=== PATIENT | female | born 1975 | race Caucasian/White ===

== ENCOUNTER 2019-01-30 04:26 | Emergency (ER) | payer SELFPAY ==
[~2019-01-30] VITALS: Ht 160 cm; Wt 129.3 kg
--- OUTSIDE RECORDS SUMMARY | ~2019-01-30 | XMS | Clinical Summary ---
Demographics + + + | Address | [address] | | | [place] [address] | + + + | Home Phone | | + + + | Preferred Language | Unknown | + + + | Marital Status | Single | + + + | Restorationist Affiliation | LDS | + + + | Race | White | + + + | Ethnic Group | Not or | + + + Author + + + | Author | [facility] | + + + | Organization | [facility] | + + + | Address | Unknown | + + + | Phone | Unavailable | + + + Support + + +---------+ + | Name | Relationship | Address | Phone | + + +---------+ + | OLIVIA KEN | [place] | Unknown | | + + +---------+ + Care Team Providers + +------+ + | Care Ampoule Washing Machine Operator Name | Role | Phone | + +------+ + | Tucker Dobson PA-C | PP | Unavailable | + +------+ + Source Comments [facility] is fully live on both [facility] and [facility] Allergies + + + + + + | Active Allergy | Reactions | Severity | Noted | Comments | | | | | Date | | + + + + + + | Hydromorphone | Nausea and Vomiting | Low | 07/01/20 | | | | | | 14 | | + + + + + + | Ketorolac | Anaphylaxis | High | 05/18/20 | | | | | | 16 | | + + + + + + | Penicillins | Rash | Medium | 05/18/20 | | | | | | 16 | | + + + + + + | Sumatriptan | Edema | Medium | 02/13/20 | | | | | | 12 | | + + + + + + Current Medications + + +-------+---------+------+------+-------+ | Prescription | Sig. | Disp. | Refills | Star | End | Statu | | | | | | t | Date | s | | | | | | Date | | | + + +-------+---------+------+------+-------+ | ondansetron ODT 4 | Dissolve on tongue | | | | | Activ | | mg oral | and swallow. | | | | | e | | tablet,disintegratin | | | | | | | | g | | | | | | | + + +-------+---------+------+------+-------+ | oxyCODONE | Take by mouth. | | | 06/0 | | Activ | | (immediate release) | | | | 2/20 | | e | | 20 mg oral tablet | | | | 16 | | | + + +-------+---------+------+------+-------+ | FLUoxetine 40 mg | Take by mouth. | | | | | Activ | | oral capsule | | | | | | e | + + +-------+---------+------+------+-------+ | oxyCODONE intensol | | | | 02/0 | | Activ | | 20 mg/mL oral | | | | 2/20 | | e | | concentrate | | | | 18 | | | + + +-------+---------+------+------+-------+ | OXYCONTIN 10 mg | | | | 01/1 | | Activ | | oral tablet,oral | | | | 6/20 | | e | | only,ext.rel.12 hr | | | | 18 | | | + + +-------+---------+------+------+-------+ Active Problems + + + | Problem | Noted Date | + + + | Acute pain of right lower extremity | 07/01/2017 | + + + | Fibromyalgia | 03/06/2017 | + + + + + | Overview: Overview: | | On chronic narcotic therapy. | + + + + + | Calcium oxalate renal stones | 06/04/2016 | + + + | Arthritis pain, shoulder | 05/18/2016 | + + + | GERD (gastroesophageal reflux disease) | 05/18/2016 | + + + | BMI 60.0-69.9, adult (HCC) | 12/21/2013 | + + + | Cellulitis | 12/21/2013 | + + + + + | Overview: Last Assessment & Plan: Symptoms have improved. I | | was not able to view the wound because of the compression wrap | | which has been placed. The patient was advised to wear different | | clothing to allow better examination with her next followup. | | Transition to oral cephalexin has been well-tolerated. Oral | | antibiotics will be completed in about one more week. We'll | | followup in 3 weeks to review clinical progress. Repeat labs | | including sedimentation rate, CRP and CBC should be collected at | | that time. The patient was advised to call promptly if she has | | any fevers or worsening redness. | + + + + + | Diabetes mellitus (HCC) | 12/21/2013 | + + + | Chronic pain | 04/29/2013 | + + + | Elevated blood pressure | 04/29/2013 | + + + Social History + + + +--------+------+ | Tobacco Use | Types | Packs/Day | Years | Date | | | | | Used | | + + + +--------+------+ | Current Every Day | Cigarettes | 0.25 | 8 | | | Smoker | | | | | + + + +--------+------+ + +---+---+---+ | Smokeless Tobacco: | | | | | Never Used | | | | + +---+---+---+ + + +---------+ + | Alcohol Use | Drinks/We | oz/Week | Comments | | | ek | | | + + +---------+ + | No | | | | + + +---------+ + + + + | Sex Assigned at | Date Recorded | | | | + + + | Not on file | | + + + Last Filed Vital Signs + + + + | Vital Sign | Reading | Time Taken | + + + + | Blood Pressure | 155/87 | 12/26/2017 2:31 PM PST | + + + + | Pulse | 80 | 12/26/2017 2:31 PM PST | + + + + | Temperature | - | - | + + + + | Respiratory Rate | - | - | + + + + | Oxygen Saturation | 96% | 12/26/2017 2:31 PM PST | + + + + | Inhaled Oxygen | - | - | | Concentration | | | + + + + | Weight | 147 kg (324 lb) | 12/26/2017 2:31 PM PST | + + + + | Height | 160 cm (5' 3") | 12/26/2017 2:31 PM PST | + + + + | Body Mass Index | 57.39 | 12/26/2017 2:31 PM PST | + + + + Plan of Treatment + + + + + | Health Maintenance | Due Date | Last Done | Comments | + + + + + | Influenza (Flu) | | 12/22/2013 | | | vaccination (#1) | 8 | | | + + + + + | Pneumococcal (Adult) | Completed | 12/22/2013 | | + + + + + Results Not on filefrom Last 3 Months Insurance + +--------+ +------+ + + | Payer | Benefi | Subscriber | Type | Phone | Address | | | t Plan | ID | | | | | | / | | | | | | | Group | | | | | + +--------+ +------+ + + | PAC[employer]ICSOURCE | PACIFI | xxxxxxxxxxx | PPO | [phone] [address] | | | [facility] | | | [phone] | [place], [place] | | | E | | | | [phone] | + +--------+ +------+ + + + +--------+ +--------+ + + | Guarantor Name | Accoun | Relation to | Date | Phone | Billing Address | | | t Type | Patient | of | | | | | | | | | | + +--------+ +--------+ + + | ANGELITA KEN | Person | Self [birth year] | Home: | [address] | | [place] | al/Fam | | 1975 | [phone] | [place] [address] | | | shoaib | | | [phone] | | + +--------+ +--------+ + +
--- OUTSIDE RECORDS SUMMARY | ~2019-01-30 | XMS | Clinical Summary ---
Demographics + + + | Address | [address] | | | [place] [address] | + + + | Home Phone | | + + + | Preferred Language | Unknown | + + + | Marital Status | Single | + + + | Scientology Affiliation | [phone] | + + + | Race | Unknown | + + + | Ethnic Group | Unknown | + + + Author + + + | Author | [facility] | + + + | Organization | [facility] | + + + | Address | Unknown | + + + | Phone | Unavailable | + + + Support + + +---------+ + | Name | Relationship | Address | Phone | + + +---------+ + | Norm Ken | EARLENE | Unknown | | + + +---------+ + | Son Ken | ECON | Unknown | | + + +---------+ + Care Team Providers + +------+ + | Care Social Service Director Name | Role | Phone | + +------+ + | Jun Collier MD | PP | | + +------+ + Allergies + + + + + + | Active Allergy | Reactions | Severity | Noted | Comments | | | | | Date | | + + + + + + | Hydromorphone | Nausea and Vomiting | Low | 07/01/20 | | | | | | 14 | | + + + + + + | Sumatriptan | Swelling | Medium | 02/13/20 | | | | | | 12 | | + + + + + + | Penicillins | Other (See Comments) | Medium | 02/03/20 | | | | | | 12 | | + + + + + + | Ketorolac | Shortness of Breath | High | 02/03/20 | | | | | | 12 | | + + + + + + Current Medications + + +-------+---------+------+------+-------+ | Prescription | Sig. | Disp. | Refills | Star | End | Statu | | | | | | t | Date | s | | | | | | Date | | | + + +-------+---------+------+------+-------+ | oxycodone 20 MG | Take 20 mg by mouth. | | | 06/0 | | Activ | | immediate release | | | | 2/20 | | e | | tablet | | | | 16 | | | + + +-------+---------+------+------+-------+ | vitamin D2, | Take 50,000 Units by | | | 05/2 | | Activ | | ergocalciferol, | mouth. | | | /20 | | e | | 13114 units capsule | | | | 18 | | | + + +-------+---------+------+------+-------+ | FLUoxetine | Take 40 mg by mouth. | | | | | Activ | | (PROZAC) 40 MG | | | | | | e | | capsule | | | | | | | + + +-------+---------+------+------+-------+ | ondansetron | Take 8 mg by mouth. | | | 05/2 | | Activ | | (ZOFRAN-ODT) 8 MG | | | | /20 | | e | | disintegrating | | | | 18 | | | | tablet | | | | | | | + + +-------+---------+------+------+-------+ | oxyCODONE | Take 15 mg by mouth | | | 07/ | | Activ | | (ROXICODONE) 15 MG | 2 (two) times daily. | | | 3/ | | e | | immediate release | | | | 18 | | | | tablet | | | | | | | + + +-------+---------+------+------+-------+ | albuterol | Inhale 2 puffs into | | | | | Activ | | (PROVENTIL | the lungs every 4 | | | | | e | | HFA;VENTOLIN HFA) | (four) hours as | | | | | | | 108 (90 Base) | needed for Wheezing. | | | | | | | MCG/ACT inhaler | | | | | | | + + +-------+---------+------+------+-------+ | Phentermine HCl 30 | Take by mouth. | | | | | Activ | | MG TBDP | | | | | | e | + + +-------+---------+------+------+-------+ Active Problems + + + | Problem | Noted Date | + + + | Cellulitis of extremity | 07/01/2017 | + + + | Acute pain of right lower extremity | 07/01/2017 | + + + | Folliculitis | 07/01/2017 | + + + | Current smoker | 07/01/2017 | + + + | Hypercoagulable state, secondary (HCC) | 03/06/2017 | + + + + + | Overview: Overview: Patient with history of morbid obesity, | | Body mass index is 66.07 kg/(m^2). Chronic Lower extremity | | cellulitis from chronic lymphedema. Admitted for 10 days to [facility] | | in [place], [place] in lower extremity cellulitis in 2013.Current | | every day smoker for 15 years.Recurrent upper respiratory tract | | infections.Recurrent urinary tract infections and one episode of | | pyelonephritis June 03, 2016.Evaluation for angina January 24, 2017; | | D-dimer 435 ng/ml (LLN 400 mg/ml).CT chest pulmonary embolus | | protocol January 25, 2017; Normal, no evidence of pulmonary | | embolus.CT chest with contrast February 20, 2017; No pathology | | evident.Bilateral lower extremity venous ultrasound January 31 | | 2016; no evidence of DVT.Diagnosed with acute upper respiratory | | tract infection on February 07, 2017.Repeat D-Dimer in the | | asymptomatic state February 16, 2017 536 ng/ml (LLN 400 ng/ml).Last | | Assessment & Plan: Assessment; secondary hypercoagulable state | | secondary to chronic inflammation from obesity, recurrent upper | | respiratory tract infections, chronic lower extremity cellulitis, | | recurrent urinary tract infections, and cigarette smoking.Plan; | | Reassurance.I told Angelita that her chronic elevation of D-Dimer | | is non-specific and does not mean that she is having a blood clot | | currently.However, we did discuss the fact that obesity is a | | modifiable hypercoagulable state. An abundance of clinical and | | epidemiological evidence has established that obesity is a risk | | factor for arterial and venous thrombosis. Obesity is a | | predictor of incident myocardial infarction independent of sex, | | age or ethnicity. Obesity is also a risk factor for ischemic | | stroke, deep venous thrombosis, and pulmonary embolus in both men | | and women. In a meta-analysis of the influence of obesity on | | the risk of a first episode of venous thromboembolic disease, the | | overall odds ratio for first VTE is 2.3 which is similar to | | other inheritable risk factors for thrombophilia such as factor V | | Leiden or acquired risk factors such as exposure to estrogen. | | The risk is even higher for patients who have a BMI greater than | | 40 kg/m . Obesity is also a risk factor for recurrent venous | | thromboembolic disease after the initial event.Obesity is a | | chronic inflammatory condition that is associated with | | dysregulation of metabolic homeostasis resulting in insulin | | resistant, dyslipidemia, altered regulation of blood pressure, | | increased risk of diabetes, cardiovascular disease, chronic | | kidney disease, cancer and thrombosis. It is also likely a | | contributing factor to Angelita's chronically elevated D-Dimer. | | Chronic low-grade inflammation is triggered by inflammatory | | cytokines secreted by the adipocytes leading to the recruitment | | of macrophages to the adipose tissue. Adipose-related resident | | macrophages progressively accumulate as the fat mass increases | | especially in the visceral white adipose tissue. The inflamed | | adipose micro-environment promotes the polarization of | | inflammatory macrophages which further contribute to the | | secretion of cytokines and promotes the systemic inflammatory | | response syndrome. Another major consequence of this chronic | | inflammation is activation of prothrombotic signaling in the | | vascular cells. Finally, inflammation in the obesity associated | | tissue causes impairment of fibrinolysis because of marketed | | increase in expression of plasminogen activator inhibitor.The | | only effective way to interdict the prothrombotic state induced | | by obesity his weight loss. Angelita has been unsuccessful in | | losing weight with diet. Therefore, I recommended bariatric | | surgery.Chronic tobacco use is also a contributing factor is the | | pro inflammatory state.Alfa will follow up with her primary | | care providers to arrange for a referral to a bariatric surgeon | | and for smoking cessation.Follow-up in the [facility] | | [facility] is open. | + + + + + | PCOS (polycystic ovarian syndrome) | 03/06/2017 | + + + | Recurrent UTI (urinary tract infection) | 06/04/2016 | + + + | GERD (gastroesophageal reflux disease) | 05/18/2016 | + + + | Accidental drug overdose | 08/26/2014 | + + + | Non-accidental drug overdose | 08/13/2014 | + + + | Hypoxia | 08/13/2014 | + + + | Intestinal infection due to Clostridium difficile | 07/05/2014 | + + + | PTSD (post-traumatic stress disorder) | 07/02/2014 | + + + | Nightmares associated with chronic post-traumatic stress disorder | 07/02/2014 | + + + | Gastroenteritis, acute | 07/01/2014 | + + + | Nausea with vomiting | 07/01/2014 | + + + | Diarrhea | 07/01/2014 | + + + | Hematemesis | 07/01/2014 | + + + | Diabetes mellitus (HCC) | 07/01/2014 | + + + | Suicide ideation | 07/01/2014 | + + + | Hypoalbuminemia | 12/22/2013 | + + + | Cellulitis left lower extremity. | 12/21/2013 | + + + + + | Last Assessment & Plan: Symptoms have improved. I was not | | able to view the wound because of the compression wrap which has | | been placed. The patient was advised to wear different clothing | | to allow better examination with her next followup. Transition to | | oral cephalexin has been well-tolerated. Oral antibiotics will | | be completed in about one more week. We'll followup in 3 weeks to | | review clinical progress. Repeat labs including sedimentation | | rate, CRP and CBC should be collected at that time. The patient | | was advised to call promptly if she has any fevers or worsening | | redness. | + + + + + | SIRS (systemic inflammatory response syndrome) | 12/21/2013 | + + + | Diabetes mellitus (HCC) | 12/21/2013 | + + + | LEIGH (obstructive sleep apnea) | 12/21/2013 | + + + | BMI 60.0-69.9, adult | 12/21/2013 | + + + | Chronic pain syndrome | 12/21/2013 | + + + | Wound infection | 05/07/2013 | + + + | Lymphedema | 04/29/2013 | + + + + + | Last Assessment & Plan: Continue compression wraps. I have | | given the patient an order for her home wound care nurse to | | continue doing this. | + + +---------+ + | Obesity | 04/29/2013 | +---------+ + + + | Last Assessment & Plan: The patient's lower extremity | | lymphedema and venous stasis would improve with weight loss. | | Weight loss would reduce her risk of recurrent episodes of lower | | extremity cellulitis. The patient was encouraged to continue her | | weight loss efforts. | + + + + + | Osteoarthrosis, unspecified whether generalized or localized, | 04/29/2013 | | unspecified site | | + + + | Type II or unspecified type diabetes mellitus without mention of | 04/29/2013 | | complication, not stated as uncontrolled | | + + + | Ulcer of right leg | 04/29/2013 | + + + | Chronic pain | 04/29/2013 | + + + | Elevated blood pressure | 04/29/2013 | + + + Resolved Problems + + + + | Problem | Noted | Resolved | | | Date | Date | + + + + | Diffuse abdominal pain | 07/01/20 | | | | 14 | 4 | + + + + | Depression | 07/01/20 | | | | 14 | 4 | + + + + Immunizations + + + + | Name | Dates Previously Given | Next Due | + + + + | Influenza Split | 12/22/2013 | | + + + + | Influenza, PF | 12/22/2013 | | | Trivalent | | | + + + + | Pneumococcal | 12/22/2013 | | | Polysaccharide | | | | 23-valent | | | + + + + Family History + + +------+ + | Medical History | Relation | Name | Comments | + + +------+ + | Diabetes type II | Mother | | | + + +------+ + + +------+--------+ + | Relation | Name | Status | Comments | + +------+--------+ + | Mother | | | | + +------+--------+ + Social History + +-------+ +--------+------+ | Tobacco Use | Types | Packs/Day | Years | Date | | | | | Used | | + +-------+ +--------+------+ | Former Smoker | | 0.5 | | | + +-------+ +--------+------+ + +---+---+---+ | Smokeless Tobacco: | | | | | Never Used | | | | + +---+---+---+ + + | Tobacco Cessation: Ready to Quit: Yes; Counseling Given: No | + + + + +---------+ + | Alcohol Use [...] + + + | Blood Pressure | 144/95 | 06/25/2018 10:31 AM PDT | + + + + | Pulse | 94 | 06/25/2018 10:31 AM PDT | + + + + | Temperature | 36.7 C (98 F) | 06/25/2018 10:31 AM PDT | + + + + | Respiratory Rate | 16 | 07/04/2017 8:22 AM PDT | + + + + | Oxygen Saturation | 95% | 07/04/2017 8:22 AM PDT | + + + + | Inhaled Oxygen | - | - | | Concentration | | | + + + + | Weight | 140.2 kg (309 lb) | 06/25/2018 10:31 AM PDT | + + + + | Height | 161.5 cm (5' 3.6") | 07/01/2017 11:25 PM PDT | + + + + | Body Mass Index | 53.71 | 06/25/2018 10:31 AM PDT | + + + + Plan of Treatment + + + + + | Health Maintenance | Due Date | Last Done | Comments | + + + + + | Diabetic Eye Exam | | | | | | 3 | | | + + + + + | Diabetic Foot Exam | | | | | | 3 | | | + + + + + | Microalbumin | | | | | Screening | 3 | | | + + + + + | Vaccine: | | | | | Dtap/Tdap/Td (1 - | 2 | | | | Tdap) | | | | + + + + + | Cervical Cancer | | | | | Screening (Pap) | 3 | | | + + + + + | Hemoglobin A1c | | 07/06/2014, 07/02/2014 | | | | 4 | | | + + + + + | Statin Therapy | | | | | (optimal intensity) | 6 | | | + + + + + | Vaccine: Influenza | | 12/22/2013 | | | (#1) | 8 | | | + + + + + | Vaccine: | Completed | 12/22/2013 | | | Pneumococcal 19-64 | | | | | (PPSV23 only) Medium | | | | | Risk | | | | + + + + + Results Not on filefrom Last 3 Months Insurance + +--------+ +------+-------+---------+ | Payer | Benefi | Subscriber | Type | Phone | Address | | | t Plan | ID | | | | | | / | | | | | | | Group | | | | | + +--------+ +------+-------+---------+ | [employer] - | FIRST | [id number] | | | | | COVENTRY | HEALTH | 00 | | | | | | - | | | | | | | PACIFI | | | | | | | CSOURC | | | | | | | E | | | | | + +--------+ +------+-------+---------+ + +--------+ +--------+ + + | Guarantor Name | Accoun | Relation to | Date | Phone | Billing Address | | | t Type | Patient | of | | | | | | | | | | + +--------+ +--------+ + + | ANGELITA KEN | Person | Self [birth year] | Home: | [address] | | | [place] | | 1975 | [phone] | [place] [address] | | | shoaib | | | [phone] | | + +--------+ +--------+ + +
--- OUTSIDE RECORDS SUMMARY | ~2019-01-30 | XMS | Clinical Summary ---
Demographics + + + | Address | [address] | | | [place] [address] | + + + | Home Phone | | + + + | Preferred Language | Unknown | + + + | Marital Status | Single | + + + | Pentecostal Affiliation | LDS | + + + [...] Team Providers + +------+ + | Care Rail Washer Name | Role | Phone | + +------+ + | Tucker Dobson PA-C | PP | Unavailable | + +------+ + Source Comments ONEAL is fully live on both [facility] and [facility] Allergies + + + + + + [...] | PACIFI | xxxxxxxxxxx | PPO | [phone] [address] | | | [facility] | | | [phone] | [place], [place] | | | E | | | | [phone] | + +--------+ +------+ + + + +--------+ +--------+ + + | Guarantor Name | Accoun | Relation to | Date | Phone | Billing Address | | | t Type | Patient | of | | | | | | | | | | + +--------+ +--------+ + + | ANGELITA KEN | Person | Self [birth year] | Home: | [address] | | [place] | al/Fam | | 1975 | [phone] | [place] [address] | | | shoaib | | | [phone] | | + +--------+ +--------+ + +
--- OUTSIDE RECORDS SUMMARY | ~2019-01-30 | XMS | Clinical Summary ---
Demographics + + + | Address | [address] | | | [place] [address] | + + + | Home Phone | | + + + | Preferred Language | Unknown | + + + | Marital Status | Single | + + + | Shinto Affiliation | 1027 | + + + | Race | Unknown | + + + | Ethnic Group | Unknown | + + + Author + + + | Author | [facility] | | | and [place] | + + + | Organization | [facility] | | | and [place] | + + + | Address | Unknown | + + + | Phone | Unavailable | + + + Support + + +---------+ + | Name | Relationship | Address | Phone | + + +---------+ + | Norm Ken ECON | Unknown | | + + +---------+ + Care Team Providers + +------+ + | Care Military Technician Name | Role | Phone | + [...] | Sumatriptan | Swelling | Medium | 05/18/20 | | | | | | 16 | | + + + + + + Current Medications + + +-------+---------+------+------+-------+ | Prescription | Sig. | Disp. | Refills | Star | End | Statu | | | | | | t | Date | s | | | | | | Date | | | + + +-------+---------+------+------+-------+ | methadone 10 mg | Take 10 mg by mouth | | 0 | 06/0 | | Activ | | tablet | 3 times daily. | | | 2/20 | | e | | | | | | 16 | | | + + +-------+---------+------+------+-------+ | oxyCODONE 20 MG | Take 20 mg by mouth | | 0 | 06/0 | | Activ | | TABS | Twice daily as | | | 2/20 | | e | | | needed (Take up to 5 | | | 16 | | | | | times daily as | | | | | | | | needed.). | | | | | | + + +-------+---------+------+------+-------+ | oxyCODONE 10 MG | Take 10 mg by mouth | | 0 | 06/0 | | Activ | | TABS | 4 times daily. | | | 2/20 | | e | | | | | | 16 | | | + + +-------+---------+------+------+-------+ | ondansetron | Take 4 mg by mouth | | 0 | 06/1 | | Activ | | (ZOFRAN ODT) 4 mg | EVERY 4 TO 6 HOURS | | | 5/20 | | e | | disintegrating | NEEDED. | | | 16 | | | | tablet | | | | | | | + + +-------+---------+------+------+-------+ | FLUoxetine | Take 40 mg by mouth | | | | | Activ | | (PROZAC) 40 MG | Daily. | | | | | e | | capsule | | | | | | | + + +-------+---------+------+------+-------+ | busPIRone (BUSPAR) | Take 5 mg by mouth 2 | | | | | Activ | | 5 mg tablet | times daily. | | | | | e | + + +-------+---------+------+------+-------+ Active Problems + + + | Problem | Noted Date | + + + | Hypercoagulable state, secondary (HCC) | 03/06/2017 | + + + + + | Overview: Patient with history of morbid obesity, Body mass | | index is 66.07 kg/(m^2). Chronic Lower extremity cellulitis from | | chronic lymphedema. Admitted for 10 days to [facility] in [place], [place] | | in lower extremity cellulitis in 2013.Current every day smoker | | for 15 years.Recurrent upper respiratory tract | [...] | evident.Bilateral lower extremity venous ultrasound January 31, | | 2017; no evidence of DVT.Diagnosed with acute upper respiratory | | tract infection on February 07, 2017.Repeat D-Dimer in the | | asymptomatic state February 16, 2017 536 ng/ml (LLN 400 ng/ml). | | Last Assessment & Plan: Assessment; secondary hypercoagulable | | state secondary to chronic inflammation from obesity, recurrent | | upper respiratory tract infections, chronic lower extremity | | cellulitis, recurrent urinary tract infections, and cigarette | | smoking.Plan; Reassurance.I told Angelita that her chronic | | elevation of D-Dimer is non-specific and does not mean that she | | is having a blood clot currently.However, we did discuss the fact | | that obesity is a modifiable hypercoagulable state. An | | abundance of clinical and epidemiological evidence has | | established that obesity is a risk factor for arterial and venous | | thrombosis. Obesity is a predictor of incident myocardial | | infarction independent of sex, age or ethnicity. Obesity is also | | a risk factor for ischemic stroke, deep venous thrombosis, and | | pulmonary embolus in both men and women. In a meta-analysis of | | the influence of obesity on the risk of a first episode of venous | | thromboembolic disease, the overall odds ratio for first VTE | | is 2.3 which is similar to other inheritable risk factors for | | thrombophilia such as factor V Leiden or acquired risk factors | | such as exposure to estrogen. The risk is even higher for | | patients who have a BMI greater than 40 kg/m . Obesity is also | | a risk factor for recurrent venous thromboembolic disease after | | the initial event.Obesity is a chronic inflammatory condition | | that is associated with dysregulation of metabolic homeostasis | | resulting in insulin resistant, dyslipidemia, altered regulation | | of blood pressure, increased risk of diabetes, cardiovascular | | disease, chronic kidney disease, cancer and thrombosis. It is | | also likely a contributing factor to Angelita's chronically | | elevated D-Dimer. Chronic low-grade inflammation is triggered by | | inflammatory cytokines secreted by the adipocytes leading to the | | recruitment of macrophages to the adipose tissue. | | Adipose-related resident macrophages progressively accumulate as | | the fat mass increases especially in the visceral white adipose | | tissue. The inflamed adipose micro-environment promotes the | | polarization of inflammatory macrophages which further contribute | | to the secretion of cytokines and promotes the systemic | | inflammatory response syndrome. Another major consequence of | | this chronic inflammation is activation of prothrombotic | | signaling in the vascular cells. Finally, inflammation in the | | obesity associated tissue causes impairment of fibrinolysis | | because of marketed increase in expression of plasminogen | | activator inhibitor.The only effective way to interdict the | | prothrombotic state induced by obesity his weight loss. Angelita | | has been unsuccessful in losing weight with diet. Therefore, I | | recommended bariatric surgery.Chronic tobacco use is also a | | contributing factor is the pro inflammatory state.Alfa will | | follow up with her primary care providers to arrange for a | | referral to a bariatric surgeon and for smoking | | cessation.Follow-up in the [facility] | | Center is open. | + + + + + | Fibromyalgia | 03/06/2017 | + + + + + | Overview: On chronic narcotic therapy. | + + + + + | PCOS (polycystic ovarian syndrome) | 03/06/2017 | + + + | Pyelonephritis, acute | 06/06/2016 | + + + | Recurrent UTI (urinary tract infection) | 06/04/2016 | + + + | Calcium oxalate renal stones | 06/04/2016 | + + + | Ureteral stone with hydronephrosis | 05/18/2016 | + + + | UTI (urinary tract infection) | 05/18/2016 | + + + | Fever and chills | 05/18/2016 | + + + | Smoker - Daily | 05/18/2016 | + + + | GERD (gastroesophageal reflux disease) | 05/18/2016 | + + + | Class III+, BMI 60.0-69.9 | 05/18/2016 | + + + | Arthritis pain, shoulders | 05/18/2016 | + + + | Body mass index (BMI) of 60.0-69.9 in adult ([facility]) | 12/21/2013 | + + + | Obstructive sleep apnea syndrome - uses CPAP | 12/21/2013 | + + + | Chronic pain - Managed with Methadone and other Narcotics (Pain | 04/29/2013 | | Pump no longer functional) | | + + + | Lymphedema | 04/29/2013 | + + + + + | Overview: Last Assessment & Plan: Continue compression wraps. | | I have given the patient an order for her home wound care nurse | | to continue doing this. | + + Family History + + +------+ + | Medical History | Relation | Name | Comments | + + +------+ + | Depression | Daughter | | | + + +------+ + | Depression | Father | | | + + +------+ + | Diabetes | Father | | | + + +------+ + | Hypertension | Father | | | + + +------+ + | Hypertension | Maternal | | | | | Grandfath | | | | | er | | | + + +------+ + | Cancer | Maternal | | skin | | | Grandmoth | | | | | er | | | + + +------+ + | Diabetes | Maternal | | | | | Grandmoth | | | | | er | | | + + +------+ + | Cancer | Mother | | breast cancer, skin cancer | + + +------+ + | Depression | Mother | | | + + +------+ + | Hypertension | Mother | | | + + +------+ + | Diabetes | Paternal | | | | | Grandfath | | | | | er | | | + + +------+ + | Cancer | Paternal | | uterin | | | Grandmoth | | | | | er | | | + + +------+ + | Diabetes | Paternal | | | | | Grandmoth | | | | | er | | | + + +------+ + | Depression | Son | | | + + +------+ + + +------+--------+ + | Relation | Name | Status | Comments | + +------+--------+ + | Daughter | | | | + +------+--------+ + | Father | | | | + +------+--------+ + | Maternal Grandfather | | | | + +------+--------+ + | Maternal Grandmother | | | | + +------+--------+ + | Mother | | | | + +------+--------+ + | Paternal Grandfather | | | | + +------+--------+ + | Paternal Grandmother | | | | + +------+--------+ + | Son | | | | + +------+--------+ + Social History + +-------+ +--------+------+ | Tobacco Use | Types | Packs/Day | Years | Date | | | | | Used | | + +-------+ +--------+------+ | Current Every Day | | 0.5 | 15 | | | Smoker | | | | | + +-------+ +--------+------+ + +---+---+---+ | Smokeless Tobacco: | | | | | Never Used | | | | + +---+---+---+ + + | Tobacco Cessation: Ready to Quit: Yes | + + + + +---------+ + [...] + + + | Blood Pressure | 143/79 | 03/06/20171449 PDT | + + + + | Pulse | 80 | 03/06/20171449 PDT | + + + + | Temperature | 36.9 C (98.5 F) | 03/06/20171449 PDT | + + + + | Respiratory Rate | 16 | 03/06/20171449 PDT | + + + + | Oxygen Saturation | 95% | 03/06/20171449 PDT | + + + + | Inhaled Oxygen | - | - | | Concentration | | | + + + + | Weight | 169.1 kg (372 lb | 03/06/20171449 PDT | | | 14.4 oz) | | + + + + | Height | 160 cm (5' 2.99") | 06/03/2016 1758 PDT | + + + + | Body Mass Index | 66.07 | 03/06/2017 1450 PDT | + + + + Plan of Treatment + + + + + | Health Maintenance | Due Date | Last Done | Comments | + + + + + | Vaccine: | | | | | Dtap/Tdap/Td (1 - | 2 | | | | Tdap) | | | | + + + + + | Cervical Cancer | | 09/29/2002 | | | Screening (Pap) | 7 | | | + + + + + | Vaccine: Influenza | | 12/22/2013 | | | (#1) | 8 | | | + + + + + | Vaccine: | Completed | 12/22/2013 | | | Pneumococcal 19-64 | | | | | (PPSV23 only) Medium | | | | | Risk | | | | + + + + + Implants + +-------+--------+ +--------+--------+--------+ | Implanted | Type | Area | Manufacture | Device | Expira | Model | | | | | r | | tion | / | | | | | | Identi | Date | Serial | | | | | | fier | | / Lot | + +-------+--------+ +--------+--------+--------+ | Stent Uro Unvrs Sft 6fr 28cm | Stent | Left: | MELCHOR ROCHE | | 01/18/ | [id number] | | - [id number]: Qty: 1 | | Ureter | INCORPORATE | | 2018 | / | | on 06/03/2016 by Nate Moses | | | D | | | /[id number] | | GMD | | | | | | 96 | + +-------+--------+ +--------+--------+--------+ Results Not on filefrom Last 3 Months Insurance +-------+--------+ +------+-------+---------+ | Payer | Benefi | Subscriber | Type | Phone | Address | | | t Plan | ID | | | | | | / | | | | | | | Group | | | | | +-------+--------+ +------+-------+---------+ | BCBS | BCBS | [id number] | PPO | | | | | OOS | 5 | | | | | | PPO | | | | | +-------+--------+ +------+-------+---------+ + +--------+ +--------+ + + | Guarantor Name | Accoun | Relation to | Date | Phone | Billing Address | | | t Type | Patient | of | | | | | | | | | | + +--------+ +--------+ + + | ANGELITA KEN | Person | Self | [birth year] | Home: | [address] | | [place] | [place] | | 1975 | [phone] | [place] | | | shoaib | | | [phone] | [phone] | + +--------+ +--------+ + +
--- OUTSIDE RECORDS SUMMARY | ~2019-01-30 | XMS | Clinical Summary ---
Demographics + + + | Address | [address] | | | [place] [address] | + + + | Home Phone | | + + + | Preferred Language | Unknown | + + + | Marital Status | Single | + + + | Congregational Affiliation | 1027 | + + + | Race | Unknown | + + + | Ethnic Group | Unknown | + + + Author + + + | Author | [facility] | + + + | Organization | [facility] | + + + | Address [...] Team Providers + +------+ + | Care Telecom Field Technician Name | Role | Phone | [...] | /20 | | e | | 14071 units capsule | | | | 18 [...] chronic lymphedema. Admitted for 10 days to [facility] | | in [place], [place] in lower extremity cellulitis in 2013.Current [...] | and for smoking cessation.Follow-up in the [facility] | | [facility] is open. | + + + + [...] | [facility] | [id number] | | | | | COVENTRY | [...] | Self | [birth year] | Home: | [address] | | | [place] | | 1975 | [phone] | [place] [address] | | | shoaib | | | [phone] | | + +--------+ +--------+ + +
--- OUTSIDE RECORDS SUMMARY | ~2019-01-30 | XMS | Clinical Summary ---
Demographics + + + | Address | [address] | | | [place] [address] | + + + | Home Phone | | + + + | Preferred Language | Unknown | + + + | Marital Status | Single | + + + | Spiritism Affiliation | 1027 | + + + | Race | Unknown | + + + | Ethnic Group | Unknown | + + + Author + + + | Author | [facility] | | | and [place] | + + + | Organization | [facility] | | | [...] Team Providers + +------+ + | Care Licensed Occupational Therapist Name | Role | Phone | + [...] chronic lymphedema. Admitted for 10 days to [facility] in [place], [place] | | in lower extremity cellulitis [...] for smoking | | cessation.Follow-up in the [facility] | | Center is open. [...] mass index (BMI) of 60.0-69.9 in adult ([facility]) | 12/21/2013 | + + + | [...] | MELCHOR ROCHE | | 01/18/ | [id number] | | - [id number]: Qty: 1 | | Ureter | INCORPORATE | | 2018 | / | | on 06/03/2016 by Nate Moses | | | D | | | /[id number] | | GMD | | | | [...] +-------+--------+ +------+-------+---------+ | BCBS | BCBS | [id number] | PPO | | | | | [...] | [place] | | | [phone] | [phone] | + +--------+ +--------+ + +
[~2019-01-30 04:26] MED LIST: ALPRAZOLAM0.5 MG PO; CARAFATE1 GM/10 ML PO; CIPROFLOXACIN250 MG PO; FLOMAX0.4 MG PO; HYDROCODON-ACE1 EA11 PO; METHADONE HCL10 MG PO; MORPHINE; OXYCODONE HCL10 MG PO; OXYCONTIN10 MG PO; PROMETHAZINE HC25 M1 PO; PROTONIX40 MG PO; PROVERA10 MG PO; [UNRECOGNIZED DRUG - OTHER]
--- OUTSIDE RECORDS SUMMARY | 2019-01-30 04:28 | XMS ---
PreManage Notification: YANELIS KEN Security Technical Aid Events No recent Security Events currently on file CRITERIA MET - [facility] CARE PROVIDERS MAISHA MATHUR [facility] Current PHONE: Unknown MAISHA MATHUR [facility] Current PHONE: Unknown GEORGES AMBRIZ [facility] PHONE: Unknown Maisha Mathur DO [facility] Current PHONE: Unknown Rashmi has no Care Guidelines for this patient. Rosanne VISIT COUNT (12 MO.) [address] [place] [address] HALLIE [place] TOTAL 2 NOTE: Visits indicate total known visits. ED/UCC VISIT TRACKING (12 MO.) 01/30/2019 04:26 [place] TYPE: Emergency COMPLAINT: - PAIN NON INJURY 11/17/2018 21:05 [facility] [place] TYPE: Emergency DIAGNOSES: - Contusion of right foot, initial encounter - Poss broken foot and toe INPATIENT VISIT TRACKING (12 MO.) No inpatient visits to display in this time frame [id number]
[2019-01-30] MEDS ORDERED: OXYCODONE HCL E20 MG PO (05:04)
[2019-01-30] MEDS ORDERED: OXYCODONE HCL E15 MG PO (05:12)
[2019-01-30] MEDS ORDERED: TYLENOL EXTRA500 MG PO (05:14)
[2019-01-30] MEDS ORDERED: IBUPROFEN IB200 MG PO (05:14)
[2019-01-30] MEDS ORDERED: HYDROXYZINE HCL25 MG PO (05:15)
[2019-01-30] MEDS ORDERED: LOPERAMIDE2 MG PO (05:17)
[2019-01-30] MEDS ORDERED: MULTIVITAMINS1 EAC7 PO (05:17)
[2019-01-30] MEDS ORDERED: CATAPRES0.1 MG PO (05:19)
== END 2019-01-30 05:26 | disposition home or self-care (01) ==
LOC: ED 04:26
DX: G89.29 Other chronic pain (principal); F11.23 Opioid dependence with withdrawal; M54.5 Low back pain; F41.9 Anxiety disorder, unspecified; E11.9 Type 2 diabetes mellitus without complications; I10 Essential (primary) hypertension; G47.30 Sleep apnea, unspecified; Z87.891 Personal history of nicotine dependence; Z90.49 Acquired absence of other specified parts of digestive tract; Z88.0 Allergy status to penicillin; Z88.6 Allergy status to analgesic agent; Z88.8 Allergy status to other drugs, medicaments and biological substances; Z79.899 Other long term (current) drug therapy
CPT/HCPCS: 99283

== ENCOUNTER 2019-01-30 20:28 | Emergency (ER) | payer SELFPAY ==
[~2019-01-30] VITALS: Ht 160 cm; Wt 129.3 kg
--- OUTSIDE RECORDS SUMMARY | ~2019-01-30 | XMS | Clinical Summary ---
Demographics + + + | Address | [address] | | | [place] [address] | + + + | Home Phone | | + + + | Preferred Language | Unknown | + + + | Marital Status | Single | + + + | Gnosticism Affiliation | LDS | + + + [...] Team Providers + +------+ + | Care Embossing Toolsetter Name | Role | Phone | + +------+ + | Tucker Dobson PA-C | PP | Unavailable | + +------+ + Source Comments ONEAL is fully live on both [facility] and [facility] Allergies + + + + [...] | PACIFI | xxxxxxxxxxx | PPO | [phone] [address] | | | [facility] | | | [phone] | [place], [place] | | | E | | | | [phone] | + +--------+ +------+ + + + +--------+ +--------+ + + | Guarantor Name | Accoun | Relation to | Date | Phone | Billing Address | | | t Type | Patient | of | | | | | | | | | | + +--------+ +--------+ + + | ANGELITA KEN | Person | Self [birth year] | Home: | [address] | | [place] | al/Fam | | 1975 | [phone] | [place] [address] | | | [place] | | | [phone] | | + +--------+ +--------+ + +
--- OUTSIDE RECORDS SUMMARY | ~2019-01-30 | XMS | Clinical Summary ---
Demographics + + + | Address | [address] | | | [place] [address] | + + + | Home Phone | | + + + | Preferred Language | Unknown | + + + | Marital Status | Single | + + + | Mosque Affiliation | 1027 | + + + | Race | Unknown | + + + | Ethnic Group | Unknown | + + + Author + + + | Author | [facility] | + + + | Organization | [facility] | + + + | Address [...] Team Providers + +------+ + | Care Emergency Vehicle Dispatcher Name | Role | Phone | + [...] | /20 | | e | | 70114 units capsule | | | | 18 [...] chronic lymphedema. Admitted for 10 days to [facility] | | in [place], [place] in lower extremity cellulitis in 2013.Current [...] | and for smoking cessation.Follow-up in the [facility] | | [facility] is open. | + + + + [...] | [facility] [id number] | | | | | COVENTRY | [...] | Self | [birth year] | Home: | [address] | | | [place] | | 1975 | [phone] | [place] [address] | | | shoaib | | | [phone] | | + +--------+ +--------+ + +
--- OUTSIDE RECORDS SUMMARY | ~2019-01-30 | XMS | Clinical Summary ---
Demographics + + + | Address | [address] | | | [place] [address] | + + + | Home Phone | | + + + | Preferred Language | Unknown | + + + | Marital Status | Single | + + + | Protestant Affiliation | 1027 | + + + | Race | Unknown | + + + | Ethnic Group | Unknown | + + + Author + + + | Author | [facility] | | | and [place] | + + + | Organization | [facility] | | | and [...] Team Providers + +------+ + | Care Group Work Program Director Name | Role | Phone | [...] chronic lymphedema. Admitted for 10 days to [facility] in [place], [place] | | in lower extremity cellulitis [...] for smoking | | cessation.Follow-up in the [facility] | | Center is open. | [...] mass index (BMI) of 60.0-69.9 in adult ([facility]) | 12/21/2013 | + + + [...] | MELCHOR ROCHE | | 01/18/ | [id number] | | - [id number]: Qty: 1 | | Ureter | INCORPORATE | | 2018 | / | | on 06/03/2016 by Nate Moses | | | D | | | /[id number] | | GMD | | | | [...] +-------+--------+ +------+-------+---------+ | BCBS | BCBS | [id number] | PPO | | | | | [...] | [place] | | | [phone] | [phone] | + +--------+ +--------+ + +
--- OUTSIDE RECORDS SUMMARY | ~2019-01-30 | XMS | Clinical Summary ---
Demographics + + + | Address | [address] | | | [place] [address] | + + + | Home Phone | | + + + | Preferred Language | Unknown | + + + | Marital Status | Single | + + + | Hindu Affiliation | LDS | + + + [...] Team Providers + +------+ + | Care Security Systems Installer Name | Role | Phone | + +------+ + | Tucker Dobson PA-C | PP | Unavailable | + +------+ + Source Comments ONEAL is fully live on both [facility] Ambulatory and [facility] InPatient.[facility] Allergies + + + + + + [...] | PACIFI | [phone] | PPO | [phone] | [address] | | | [facility] | | | [phone] | [place], [place] | | | E | | | | [phone] | + +--------+ +------+ + + + +--------+ +--------+ + + | Guarantor Name | Accoun | Relation to | Date | Phone | Billing Address | | | t Type | Patient | of | | | | | | | | | | + +--------+ +--------+ + + | ANGELITA KEN | Person | Self | [birth year] | Home: | [address] | | [place] | al/Fam | | 1975 | [phone] | [place] [address] | | | shoaib | | | [phone] | | + +--------+ +--------+ + +
--- OUTSIDE RECORDS SUMMARY | ~2019-01-30 | XMS | Clinical Summary ---
Demographics + + + | Address | [address] | | | [place] [address] | + + + | Home Phone | | + + + | Preferred Language | Unknown | + + + | Marital Status | Single | + + + | Denominational Affiliation | 1027 | + + + | Race | Unknown | + + + | Ethnic Group | Unknown | + + + Author + + + | Author | [facility] | | | and [place] | + + + | Organization | [facility] | | | and [...] Team Providers + +------+ + | Care Tube Winder Hand Name | Role | Phone | + [...] chronic lymphedema. Admitted for 10 days to [facility] in [place], [place] | | in lower extremity cellulitis [...] for smoking | | cessation.Follow-up in the [facility] | | Center is open. | [...] mass index (BMI) of 60.0-69.9 in adult ([facility]) | 12/21/2013 | + + + | [...] | MELCHOR ROCHE | | 01/18/ | [id number] | | - [id number]: Qty: 1 | | Ureter | INCORPORATE | | 2018 | / | | on 06/03/2016 by Nate Moses | | | D | | | /[id number] | | GMD | | | | [...] +-------+--------+ +------+-------+---------+ | BCBS | BCBS | [id number] | PPO | | | | | [...] | [place] | | | [phone] | [phone] | + +--------+ +--------+ + +
--- OUTSIDE RECORDS SUMMARY | ~2019-01-30 | XMS | Clinical Summary ---
Demographics + + + | Address | [address] | | | [place] [address] | + + + | Home Phone | | + + + | Preferred Language | Unknown | + + + | Marital Status | Single | + + + | Tenriism Affiliation | 1027 | + + + | Race | Unknown | + + + | Ethnic Group | Unknown | + + + Author + + + | Author | [facility] | + + + | Organization | [facility] | + + + | Address [...] Team Providers + +------+ + | Care Dietetic Technician Name | Role | Phone | [...] | /20 | | e | | 16869 units capsule | | | | 18 [...] chronic lymphedema. Admitted for 10 days to [facility] | | in [place], [place] in lower extremity cellulitis in 2013.Current [...] | and for smoking cessation.Follow-up in the [facility] | | [facility] is open. | + + + [...] | [facility] | [id number] | | | | | COVENTRY | [...] | Self | [birth year] | Home: | [address] | | | [place] | | 1975 | [phone] | [place] [address] | | | shoaib | | | [phone] | | + +--------+ +--------+ + +
[~2019-01-30 20:28] MED LIST changes: +CATAPRES0.1 MG PO; +HYDROXYZINE HCL25 MG PO; +IBUPROFEN IB200 MG PO; +LOPERAMIDE2 MG PO; +MULTIVITAMINS1 EAC7 PO; +OXYCODONE HCL E15 MG PO; +OXYCODONE HCL E20 MG PO; +TYLENOL EXTRA500 MG PO
--- OUTSIDE RECORDS SUMMARY | 2019-01-30 20:30 | XMS ---
PreManage Notification: YANELIS KEN Security Supervisor Heat Treating Events No recent Security Events currently on file CRITERIA MET - PDM - [facility] - 2 Visits in 30 Days CARE PROVIDERS JACOB MARTINEZ Physician Section Supervisor 01/30/2019-Current PHONE: Unknown MAISHA MATHUR [facility] Current PHONE: Unknown MAISHA MATHUR [facility] Current PHONE: Unknown GEORGES AMBRIZ Primary Care [facility] PHONE: Unknown Maisha Mathur DO Primary Care Current PHONE: Unknown Rashmi has no Care Guidelines for this patient. Rosanne VISIT COUNT (12 MO.) [address] Ramin [place] TOTAL 3 NOTE: Visits indicate total known visits. ED/UCC VISIT TRACKING (12 MO.) 01/30/2019 20:28 [facility] [place] TYPE: Emergency COMPLAINT: - CHEST PAIN 01/30/2019 04:26 [facility] [place] TYPE: Emergency COMPLAINT: - PAIN NON INJURY 11/17/2018 21:05 [facility] [place] TYPE: Emergency DIAGNOSES: - Contusion of right foot, initial encounter - Poss broken foot and toe INPATIENT VISIT TRACKING (12 MO.) No inpatient visits to display in this time frame [id number]
--- NOTE | 2019-01-31 07:52 | EKG ---
[facility] [address] [place], [place] [address] Signed Normal sinus rhythm Normal ECG No previous ECGs available Confirmed by NESTOR BRADFORD MD ([id number]) on 01/31/2019 7:52:06 AM Electronically Signed By: NESTOR BRADFORD MD 01/31/19 0752 PATIENT NAME: YANELIS KEN Electrocardiogram DATE OF : [birth year] PHYSICIAN: NESTOR BRADFORD MD REPORT #: [id number] REPORT IS CONFIDENTIAL AND NOT TO BE RELEASED WITHOUT AUTHORIZATION
== END 2019-01-30 22:50 | disposition home or self-care (01) ==
LOC: ED 20:28
DX: R07.9 Chest pain, unspecified (principal); F41.9 Anxiety disorder, unspecified; E11.9 Type 2 diabetes mellitus without complications; I10 Essential (primary) hypertension; G47.30 Sleep apnea, unspecified; Z87.891 Personal history of nicotine dependence; Z90.49 Acquired absence of other specified parts of digestive tract; Z88.0 Allergy status to penicillin; Z88.6 Allergy status to analgesic agent; Z88.8 Allergy status to other drugs, medicaments and biological substances; Z79.899 Other long term (current) drug therapy
CPT/HCPCS: 71045; 80053; 84484; 85025; 93005; 93010; 99285-25

== ENCOUNTER 2021-12-28 00:23 | Emergency (ER) | payer MEDICARE, OTHER ==
[~2021-12-28] VITALS: Ht 160 cm; Wt 124.7 kg
[~2021-12-28 00:23] MED LIST changes: +BUPRENORPHINE HC8 MG SL; +ZOFRAN8 MG PO
--- OUTSIDE RECORDS SUMMARY | 2021-12-28 00:26 | XMS ---
PreManage Notification: YANELIS KEN Security Custom Grinder Events No recent Security Events currently on file CRITERIA MET - PDMP - [facility] - 2 Visits in 30 Days - 6 ED Visits in 6 Months - [facility] - 3 Facilities in 90 Days CARE PROVIDERS JACOB MARTINEZ 01/30/2019-Current PHONE: Unknown Aline Manager Salt 10/11/2021-Current PHONE: [phone] Fuad Mathur DO [facility] Current PHONE: Unknown Rashmi has no Care Guidelines for this patient. E.D. VISIT COUNT (12 MO.) [address] [facility] 1 [facility] TOTAL 8 NOTE: Visits indicate total known visits. ED/UCC VISIT TRACKING (12 MO.) 12/28/2021 00:24 [facility] [place] TYPE: Emergency COMPLAINT: - LEG PAIN/ SWELLING 12/26/2021 03:06 [facility] [place] TYPE: Emergency COMPLAINT: - Walk In_SEPSIS, L LEG 12/19/2021 01:15 [facility] [place] TYPE: Emergency COMPLAINT: - FEVER DIAGNOSES: - FEVER 10/07/2021 15:59 [facility] [place] TYPE: Emergency DIAGNOSES: - Lymphedema, not elsewhere classified - INFECTION - Cellulitis of right lower limb 09/09/2021 07:09 [facility] [place] [facility] DIAGNOSES: - COVID-19 - Hypoxemia - COPD 08/12/2021 04:12 [facility] [place] TYPE: Emergency DIAGNOSES: - Contusion of unspecified finger without damage to nail, initial encounter - Contusion of right knee, initial encounter - KNEE PAIN 05/21/2021 22:31 [facility] TYPE: Emergency DIAGNOSES: - COVID-19 - Shortness of Breath 05/11/2021 18:59 [facility] [place] TYPE: Emergency DIAGNOSES: - Cellulitis of unspecified part of limb - LEG PAIN - Lymphedema, not elsewhere classified INPATIENT VISIT TRACKING (12 MO.) 12/19/2021 01:15 [facility] [place] TYPE: Medical Surgical DIAGNOSES: - FEVER - Sepsis, unspecified organism 09/09/2021 10:44 [facility] [place] TYPE: Medical Surgical DIAGNOSES: - COVID-19 - Hypoxemia [id number]
[2021-12-28] MEDS ORDERED: CLEOCIN HCL150 MG PO (00:59)
[2021-12-28] MEDS ORDERED: HYDROCODON-ACE1 EA10 PO (01:00)
== END 2021-12-28 05:30 | disposition home or self-care (01) ==
LOC: ED 00:23
DX: L03.116 Cellulitis of left lower limb (principal); E11.9 Type 2 diabetes mellitus without complications; I10 Essential (primary) hypertension; G47.30 Sleep apnea, unspecified; Z87.891 Personal history of nicotine dependence; Z88.5 Allergy status to narcotic agent; Z88.0 Allergy status to penicillin; Z88.8 Allergy status to other drugs, medicaments and biological substances; Z79.899 Other long term (current) drug therapy
CPT/HCPCS: 36415; 80053; 83605; 85025; 96365; 96366; 99283-25; J3370; J7060